=== PATIENT | male | born 1990 | race Two or more races ===

== ENCOUNTER 2019-01-05 07:34 | Emergency (ER) | payer SELFPAY ==
[2019-01-05] MEDS ORDERED: fentaNYL 100 MCG/2 ML SDV IVPUSH ONE (07:57)
[2019-01-05] MEDS ORDERED: Sodium Chloride 0.9% 1,000 ML IV SCH (08:00)
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
--- NOTE | 2019-01-05 08:44 | CRLCR ---
Indication: Injury and pain Technique: Bilateral hand 6 views Comparison: None Findings: Bones: Alignment is normal. No fractures or bone lesions. Joint spaces: Unremarkable. Soft tissues: Dorsal soft tissue swelling is in the right hand. Otherwise unremarkable. Impression: Dorsal soft tissue swelling is present in the right hand. No fracture visualized. Remainder of both hands is unremarkable. Dictated by Benson Husain MD @ 01/05/2019 8:42:18 AM Dictated by: Benson Husain MD @ 01/05/2019 08:42:26 (Electronically Signed)
--- NOTE | 2019-01-05 08:46 | CRLCR ---
Indication: Injury and pain Technique: Right elbow 4 views Comparison: None Findings: Bones: Alignment is normal. No sign of acute fracture. There is a chronic appearing nondisplaced bone fragment off the posterior tip of the olecranon visualized on the lateral image. No other osseous abnormality. Joint spaces: Unremarkable. Soft tissues: Unremarkable. Impression: No sign of acute injury. Dictated by Benson Husain MD @ 01/05/2019 8:45:01 AM Dictated by: Benson Husain MD @ 01/05/2019 08:45:12 (Electronically Signed)
[2019-01-05] MEDS: Sodium Chloride 0.9% 10 ML Syringe FLUSH PRN ×2 (08:47→09:24)
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
[2019-01-05] MEDS ORDERED: Iopamidol 612 MG/ML 100 ML Bottle IV PRN (09:22)
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
[2019-01-05 11:20] VITALS: BP 123/73
== END 2019-01-05 11:30 ==
LOC: JP.ED 07:34
DX: S00.03XA Contusion of scalp, initial encounter (principal); S20.20XA Contusion of thorax, unspecified, initial encounter; F17.210 Nicotine dependence, cigarettes, uncomplicated; Y04.8XXA Assault by other bodily force, initial encounter
CPT/HCPCS: 36415; 70450; 70486; 71260; 72125; 73070; 73130; 74177; 80048; 85025; 96361; 96374; 99284; G0480; J3010; J7030; Q9967